=== PATIENT | male | born 1980 | race Caucasian/White ===

== ENCOUNTER → 2017-11-14 | Outpatient (CLI) | payer MEDICAID ==
[2017-11-14 08:52] LABS: ALT 29 U/L (21-72); AST 22 U/L (17-59); Albumin 4.6 g/dL (3.5-5.0); Alkaline Phosphatase 40 U/L (38-126); Anion Gap 10 mmol/L; Blood Urea Nitrogen 17 mg/dL (9-20); Calcium 9.8 mg/dL (8.4-10.2); Carbon Dioxide 28 mmol/L (22-30); Chloride 105 mmol/L (98-107); Cholesterol 186 mg/dL (<200); Glucose 98 mg/dL (74-99); HDL Cholesterol 48 mg/dL (40-60); LDL Cholesterol,Calculated 124 mg/dL (0-99); Potassium 4.8 mmol/L (3.5-5.1); Sodium 143 mmol/L (137-145); Total Bilirubin 2.1 mg/dL (0.2-1.3); Total Protein 7.2 g/dL (6.3-8.2); Triglycerides 70 mg/dL (<150)
[2017-11-14 08:59] LABS: T4, Free (Free Thyroxine) 1.06 ng/dL (0.78-2.19)
[2017-11-14 09:15] LABS: Basophils # (A) 0.1 k/uL (0-0.2); Basophils % (A) 1 %; Eosinophils # (A) 0.1 k/uL (0-0.7); Eosinophils % (A) 3 %; HGB 16.6 gm/dL (13.0-17.5); Lymphocytes # (A) 1.9 k/uL (1.0-4.8); Lymphocytes % (A) 35 %; MCH 30.4 pg (25.0-35.0); MCHC 32.6 g/dL (31.0-37.0); MCV 93.3 fL (80.0-100.0); Mean Platelet Volume 8.1; Monocytes # (A) 0.4 k/uL (0-1.0); Monocytes % (A) 7 %; Neutrophils # (A) 2.9 k/uL (1.3-7.7); Neutrophils % (A) 53 %; Platelet Count 155 k/uL (150-450); RBC 5.47 m/uL (4.30-5.90); RDW 14.4 % (11.5-15.5); WBC 5.5 k/uL (3.8-10.6)
== END | disposition home or self-care (01) ==
LOC: LABWHC1 07:50
PROVIDERS: ATTEND Family Medicine
DX: Z00.00 Encounter for general adult medical examination without abnormal findings (principal)
CPT/HCPCS: 36415; 80053; 80061; 84439; 84443; 85025

== ENCOUNTER → 2020-11-01 | Outpatient (CLI) | payer MEDICAID ==
--- NOTE | 2020-11-01 10:41 | CT ---
EXAMINATION TYPE: CT sinus wo con DATE OF EXAM: 11/01/2020 COMPARISON: NONE HISTORY: Chronic sinusitis per order. Dizziness for [address] DLP: 657 mGycm. Automated Exposure Control for Dose Reduction was Utilized. TECHNIQUE: CT scan of the sinuses is performed without contrast, axial images are obtained, coronal r eformatted images are also reviewed. FINDINGS: There is 2.1 cm mucous retention cyst or polyp in the inferior right maxillary sinus with a dditional smaller polyps suspected. Remainder paranasal sinuses are clear without suspicious opacific ation or air-fluid levels. The ostiomeatal complex is patent bilaterally on coronal image 26. Nasal septal deviation axial image 20 suggestive of old fracture. Visualized portion of mastoid air cells show no abnormal opacification. The globes are intact bilate rally. Visualized brain parenchyma is unremarkable. IMPRESSION: Chronic inferior right maxillary sinus disease. No acute sinusitis.
== END | disposition home or self-care (01) ==
LOC: RADCTMAIN 09:16
PROVIDERS: ATTEND Family Medicine
DX: J32.0 Chronic maxillary sinusitis (principal); J32.9 Chronic sinusitis, unspecified
CPT/HCPCS: 70486

== ENCOUNTER 2024-01-22 06:43 | Day surgery (SDC) | payer MEDICAID ==
[2024-01-17 12:43] VITALS: BMI 25.7
[~2024-01-22 06:43] MED LIST: LIDOCAINE 1% (10MG/ML) FOR IV START INTRADERMA PRN
[2024-01-22] MEDS: LACTATED RINGERS 1,000 ML IV SCH (07:11)
[2024-01-22 07:31] VITALS: RESP 16; TEMP 97.1
[2024-01-22] MEDS ORDERED: MIDAZOLAM 2 MG/2 ML VIAL ONE (08:06)
[2024-01-22] MEDS ORDERED: fentaNYL (PF) 50 MCG/ML 2 ML AMP ONE (08:06)
[2024-01-22] MEDS ORDERED: LIDOCAINE 1% INJ 10MG/ML (20 ML MDV) ONE (08:06)
[2024-01-22] MEDS ORDERED: PROPOFOL 10 MG/ML 20 ML VIAL IV ONE (08:06)
--- NOTE | 2024-01-22 08:09 | P.GSHP ---
History of Present Illness H&P Date: 01/22/24 Chief Complaint: Epigastric pain, screening 43-year-old male here for upper and lower endoscopy. Patient with recent complaints of epigastric abdominal pain. Patient takes antiacids. Symptoms improved lately. No bowel complaints. Past Medical History Past Medical History: GERD/Reflux Additional Past Medical History / Comment(s): Vertigo. History of Any Multi-Drug Resistant Organisms: None Reported Past Surgical History: Cholecystectomy, Hernia Repair Past Anesthesia/Blood Transfusion Reactions: No Reported Reaction Additional Past Anesthesia/Blood Transfusion Reaction / Comment(s): Vertigo. Past Psychological History: No Psychological Hx Reported Smoking Status: Never smoker Past Alcohol Use History: Daily Additional Past Alcohol Use History / Comment(s): 2-3 alcoholic drinks daily. Past Drug Use History: None Reported - Past Family History Mother Family Medical History: No Reported History Medications and Allergies Home Medications Medication Instructions Recorded Confirmed Type Lansoprazole [Prevacid] 30 mg PO DAILY 01/17/24 01/22/24 History Allergies Allergy/AdvReac Type Severity Reaction Status Date / Time No Known Allergies Allergy Verified 01/22/24 07:00 Surgical - Exam Vital Signs Temp Pulse Resp BP Pulse Ox 97.1 F L 72 16 125/90 98 01/22/24 07:05 01/22/24 07:05 01/22/24 07:05 01/22/24 07:05 01/22/24 07:05 Physical exam: General: Well-developed, well-nourished HEENT: Normocephalic, sclerae nonicteric Abdomen: Nontender, nondistended Extremities: No edema Neuro: Alert and oriented Assessment and Plan (1) Colon cancer screening Narrative/Plan: Will proceed with upper and lower endoscopy Current Visit: Yes Status: Acute Code(s): Z12.11 - ENCOUNTER FOR SCREENING FOR MALIGNANT NEOPLASM OF COLON SNOMED Code(s): 558837782
--- NOTE | 2024-01-22 08:29 | P.PCN ---
Date of Procedure: 01/22/24 Procedure(s) Performed: PREOPERATIVE DIAGNOSIS: GERD, screening POSTOPERATIVE DIAGNOSIS: Gastritis, gastric polyp, colon polyp PROCEDURE: 1. EGD with biopsy 2. Colonoscopy with snare polypectomy and clip placement ANESTHESIA: MAC SURGEON: Bautista Mckeon M.D. SPECIMENS: Antrum, gastric polyp ENDOSCOPIC PROCEDURE: The patient was on the endoscopy table in the left decubitus position. The Olympus gastroscope was inserted into the oropharynx and passed under direct visualization to the region of the third portion of the duodenum. From that point the scope was slowly withdrawn inspecting all surfaces carefully. There were no neoplastic inflammatory or polypoid lesions throughout the duodenum. The pylorus was widely patent. The stomach was carefully inspected. There was mild gastritis present. A small polyp in the antrum was also seen and biopsied. A biopsy of the antrum took place to rule out H. pylori. Retroflexion revealed a normal hiatus. The esophagus was then carefully examined. There were no neoplastic inflammatory or polypoid lesions throughout the visualized esophagus. The patient was kept on the endoscopy table in the left decubitus position. The Olympus colonoscope was inserted into the anus and passed under direct visualization to the base of the cecum. The appendiceal orifice was visualized. Adjacent to the appendiceal orifice was a small polyp. This was removed using the snare with cautery technique. Location I decided to place a clip there to help prevent postop bleeding. This was deployed without incident. From that point the scope was slowly withdrawn inspecting all surfaces carefully. There were no additional neoplastic inflammatory or polypoid lesions throughout the cecum, ascending, transverse, descending, sigmoid and rectum. There was no visible diverticulosis noted. Digital rectal examination was normal. The patient was taken to the recovery room in stable condition per anesthesia guidelines. RECOMMENDATIONS: Resume diet. Await biopsy results. Continue antiacid therapy.
[2024-01-22 09:22] VITALS: BP 120/84; PULSE 71
== END 2024-01-22 09:20 | disposition home or self-care (01) ==
LOC: ORWHC2ENDO 06:43
PROVIDERS: ATTEND Surgery
DX: Z12.11 Encounter for screening for malignant neoplasm of colon (principal); D12.0 Benign neoplasm of cecum; K31.7 Polyp of stomach and duodenum; K29.70 Gastritis, unspecified, without bleeding; K21.9 Gastro-esophageal reflux disease without esophagitis; Z90.49 Acquired absence of other specified parts of digestive tract; Z79.899 Other long term (current) drug therapy; F17.200 Nicotine dependence, unspecified, uncomplicated
CPT/HCPCS: 88305; 45385; 43239; J2250; J2001; J3010; J2704; 45382